=== PATIENT | female | born 1995 | race Caucasian/White ===

== ENCOUNTER 2018-02-13 19:22 | Emergency (ER) | payer SELFPAY ==
--- NOTE | 2018-02-13 19:35 | ED Physician Documentation ---
General Adult - HISTORIAN Historian: patient - HPI Stated Complaint: dental pain Chief Complaint: General Adult Onset: hours Severity: moderate Further Comments: yes (Pt is a 22 yo female with dental pain in the R upper jaw. Pain began earlier today. 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 Take one every 8 hours for 10 days. 1st dose in ER. Rx [place] (5/325). Take one or two tablets by mouth every 4 to 6 hours as needed for moderate to severe pain. Disp: 10 plus 2 tabs-->home. General Adult Physical Exam - PHYSICAL EXAM GENERAL APPEARANCE: moderate distress EENT: pharynx normal, other (dental tenderness, upper R rear molar) NECK: normal inspection, supple RESPIRATORY: no resp distress, chest non-tender, breath sounds normal CVS: reg rate & rhythm, heart sounds normal BACK: normal inspection SKIN: warm/dry, normal color EXTREMITIES: non-tender, normal range of motion, no evidence of injury NEURO: oriented X3, motor nml, sensation nml Discharge Clincal Impression: dental pain Referrals: Primary Doctor,No [Primary Care Provider] - Condition: Good Disposition: 01 HOME, SELF-CARE Decision to Admit: NO Decision Time: 19:51
[2018-02-13] MEDS ORDERED: CEPHALEXIN 250 MG CAPSULE PO ONE (19:52)
[2018-02-13] MEDS ORDERED: HYDROcodone /APAP 5/325 1 EACH TABLET PO ONE (19:55)
[2018-02-13 21:20] VITALS: BP 135/80
== END 2018-02-13 20:05 | disposition home or self-care (01) ==
LOC: ED 19:22
DX: K08.89 Other specified disorders of teeth and supporting structures (principal); Z72.0 Tobacco use
CPT/HCPCS: 99282; 99283; A9270